=== PATIENT | male | born 1985 | race African-American/Black ===

== ENCOUNTER 2022-03-14 15:41 | Emergency (ER) | payer BC ==
[2022-03-14 16:22] VITALS: BP 120/64; PULSE 72; RESP 18; TEMP 98.1; BMI 21.7
[2022-03-14] MEDS ORDERED: KETOROLAC TROMETHAMINE 30 MG/1 ML VIAL IVPUSH ONE (17:07)
[2022-03-14] MEDS: KETOROLAC TROMETHAMINE 30 MG/1 ML VIAL IM ONE ×2 (17:25→17:26)
[2022-03-14 17:55] LABS: URINE APPEARANCE CLEAR; URINE BILIRUBIN NEGATIVE (NEGATIVE); URINE COLOR YELLOW; URINE GLUCOSE (UA) NEGATIVE (NEGATIVE); URINE KETONE TRACE (NEGATIVE); URINE LEUK ESTERASE NEGATIVE (NEGATIVE); URINE NITRITE NEGATIVE (NEGATIVE); URINE PROTEIN NEGATIVE (NEGATIVE); URINE UROBILINOGEN 0.2 mg/dL (0.2-1.0)
[2022-03-14 18:56] LABS: BASO % 0.6 % (0-2.0); EOS % 2.1 % (0-4.5); HEMATOCRIT 40.3 % (35.4-49); HEMOGLOBIN 13.2 GM/dL (11.7-16.9); LYMPH % 42.1 % (8-40); MCH 31.6 pg (25.7-33.7); MCHC 32.8 g/dl (32.0-35.9); MEAN CELL VOLUME 96.3 fl (80-96); MEAN PLT VOLUME 8.5 fl (7.5-11.1); NEUT % 47.2 % (42.8-82.8); PLATELET COUNT 240 10^3/uL (134-434); RBC 4.18 M/mm3 (4.00-5.60); RDW 12.9 % (11.9-15.9); WHITE BLOOD COUNT 5.2 K/mm3 (4.0-10.0)
[2022-03-14 18:57] LABS: ALBUMIN 3.7 g/dl (3.4-5.0); CALCIUM 8.6 mg/dL (8.5-10.1)
[2022-03-14 18:58] LABS: BLOOD UREA NITROGEN 12.1 mg/dL (7-18)
[2022-03-14 19:02] LABS: BILIRUBIN,TOTAL 0.3 mg/dL (0.2-1); TOT PROT 6.1 g/dl (6.4-8.2)
== END 2022-03-14 19:43 | disposition home or self-care (01) ==
LOC: JER 15:41
PROC: 3E0233Z Introduction of Anti-inflammatory into Muscle, Percutaneous Approach (ICD-10-PCS; principal; 2022-03-14)
DX: M54.50 Low back pain, unspecified (principal)
CPT/HCPCS: 36415; 80053; 81003; 85025; 87086; 99284-25

== ENCOUNTER 2022-03-23 12:37 | Emergency (ER) | payer BC ==
[2022-03-23 13:08] VITALS: BP 116/72; PULSE 75; RESP 20; TEMP 98.1; BMI 21.1
[2022-03-23] MEDS ORDERED: KETOROLAC TROMETHAMINE 30 MG/1 ML VIAL IM ONE (14:06)
[2022-03-23] MEDS ORDERED: LIDOCAINE 5% TOPICAL PATCH TP ONE (14:06)
== END 2022-03-23 14:47 | disposition home or self-care (01) ==
LOC: JERFT 12:37
PROC: 3E0233Z Introduction of Anti-inflammatory into Muscle, Percutaneous Approach (ICD-10-PCS; principal; 2022-03-23)
DX: M54.50 Low back pain, unspecified (principal)
CPT/HCPCS: 99284-25